=== PATIENT | female | born 1940 | race Caucasian/White ===

== ENCOUNTER → 2017-01-25 | Outpatient (CLI) | payer OTHER ==
[~2017-01-25] MED LIST: GADAVIST IV PRN
--- NOTE | 2017-01-25 17:33 | DIAGNOSTIC IMAGING REPORT ---
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 TECHNIQUE: Multisequence multiplanar MR imaging of the brain was performed before and after the administration of intravenous contrast. IV contrast: 7.5 mL of Gadavist. COMPARISON: None. FINDINGS: Scattered periventricular and subcortical white matter T2/FLAIR hyperintensities, nonspecific but likely chronic small vessel ischemic change. Ventricular system and sulci normal in size. No hemorrhage or mass effect. No restricted diffusion to suggest acute ischemia. No enhancing mass lesion. Segura-white matter differentiation preserved. No extra-axial fluid collection. Normal T2 skull base flow voids. Dedicated evaluation of the internal auditory canals demonstrates normal transiting 7th and 8th nerves. No masslike thickening or enhancement on postcontrast imaging. Normal T2 hyperintense, T1 isointense signal intensity within the cochlea and semicircular canals. Fluid noted throughout the left mastoid air cells. There is also suggestion of destruction of central mastoid air cells. No adrianne extension through the jugular plate or to the superficial soft tissues. Orbits and upper cervical spine normal. Normal bone marrow signal intensity within the calvarium. IMPRESSION: 1. No mass lesion in the internal auditory canals. 2. Left mastoid air cell opacification with findings concerning for otomastoiditis, which could be acute or chronic. 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 Correlation with CT could be helpful. Electronically signed by: Cain Solorzano M.D. 01/25/2017 5:32 PM Dictated Date/Time: 01/25/2017 5:13 PM
== END | disposition home or self-care (01) ==
LOC: C.MRI 15:32
PROVIDERS: ATTEND Physician Assistant
DX: H90.A32 Mixed conductive and sensorineural hearing loss, unilateral, left ear with restricted hearing on the contralateral side (principal); H93.92 Unspecified disorder of left ear

== ENCOUNTER → 2017-03-30 | Outpatient (CLI) | payer OTHER ==
--- NOTE | 2017-03-30 10:52 | DIAGNOSTIC IMAGING REPORT ---
TEMPORAL BONE CT WITHOUT CONTRAST CLINICAL HISTORY: Left-sided mixed conductive and sensorineural neural hearing loss. COMPARISON STUDY: MRI of the brain IAC protocol January 25, 2017. TECHNIQUE: Axial images of the temporal bones were obtained without IV contrast. Coronal reformats were viewed. FINDINGS: Visualized portions of the intracranial contents are unremarkable on this unenhanced exam. The right mastoid air cells are clear. There is no fluid within the right middle ears and the right ossicles are intact. There is mild mucosal thickening of the right maxillary sinus with minimal mucosal thickening of the left frontal and ethmoid sinuses. The left mastoid air cells are largely opacified. This is similar to MRI of January 25, 2017. No clear bony destruction is present. There is a small amount of fluid or soft tissue within the left middle ear, including Prussak's space. However, the scutum and ossicles are intact. The tegmen tympani is intact. Note is made of a left-sided myringotomy tube. IMPRESSION: 1. Largely opacified left mastoid air cells, similar to MRI of January 25, 2017. Small amount of fluid or soft tissue within the left middle ear, including Prussak's space. However, no bony erosion to strongly suggest a cholesteatoma. 2. Clear right mastoid air cells. No fluid within the right middle ear. 3. Status post placement of a left sided myringotomy tube. Electronically signed by: Jasson Reyes M.D. 03/30/2017 10:51 AM Dictated Date/Time: 03/30/2017 10:28 AM
== END | disposition home or self-care (01) ==
LOC: C.CTS 09:49
DX: H90.A32 Mixed conductive and sensorineural hearing loss, unilateral, left ear with restricted hearing on the contralateral side (principal); H74.8X2 Other specified disorders of left middle ear and mastoid; Z96.22 Myringotomy tube(s) status